=== PATIENT | female | born 1990 | race Caucasian/White ===

== ENCOUNTER 2020-02-13 10:25 | Emergency (ER) | payer SELFPAY ==
--- NOTE | 2020-02-13 11:03 | EDPHYS ---
Physician Documentation [facility] Name: Joyce Hopson Age: 29 yrs Sex: Female : 1990 Arrival Date: 02/13/2020 Time: 10:27 Bed 18 Private MD: ED Physician Shlomo Tapia HPI: 02/12 10:56 This 29 yrs old Female presents to ER via Ambulatory with complaints of [facility] Urinary Problem. 10:56 The patient presents with urinary symptoms. Onset: The symptoms/episode began/occurred jmm gradually, 2 day(s) ago. Modifying factors: The symptoms are alleviated by nothing, the symptoms are aggravated by nothing. Associated signs and symptoms: Pertinent positives: dysuria, urinary frequency, Pertinent negatives: fever, vaginal discharge, vomiting. This is a 29 year old female with no chronic medical conditions that presents to the ED with complaints of painful urination, increased frequency, blood in urine beginning this past Friday. Denies vomiting, fever.. Historical: - Allergies: 10:42 No Known Allergies; iw - Home Meds: 10:42 None [Active]; iw - PMHx: 10:42 None; iw - PSHx: 10:42 None; iw - Immunization history:: Adult Immunizations not up to date. - Social history:: Smoking status: Patient reports the use of cigarette tobacco products, smokes one pack cigarettes per day. ROS: 10:56 Constitutional: Negative for fever, chills, and weight loss, Cardiovascular: Negative jmm for chest pain, palpitations, and edema, Respiratory: Negative for shortness of breath, cough, wheezing, and pleuritic chest pain. 10:56 : Positive for urinary symptoms. 10:56 All other systems are negative. Exam: 10:56 Constitutional: This is a well developed, well nourished patient who is awake, alert, jmm and in no acute distress. Head/Face: atraumatic. Eyes: EOMI, no conjunctival erythema appreciated ENT: Moist Mucus Membranes Neck: Trachea midline, Supple Chest/axilla: Normal chest wall appearance and motion. Cardiovascular: Regular rate and rhythm. No edema appreciated Respiratory: Normal respirations, no respiratory distress appreciated Abdomen/GI: Non distended, soft 10:56 Skin: General appearance color normal MS/ Extremity: Moves all extremities, no obvious deformities appreciated, no edema noted to the lower extremities Neuro: Awake and alert, normal gait Psych: Behavior is normal, Mood is normal, Patient is cooperative and pleasant 10:56 Back: CVA tenderness, is absent. Vital Signs: 10:40 BP 125 / 87; Pulse 89; Resp 16; Temp 98.3; Pulse Ox 99% on R/A; Weight 63.5 kg; Height iw 5 ft. 10 in. (177.80 cm); Pain 8/10; 10:40 Body Mass Index 20.09 (63.50 kg, 177.80 cm) iw MDM: 10:50 Patient medically screened. [facility] 10:59 Data reviewed: vital signs, nurses notes. Counseling: I had a detailed discussion with [facility] the patient and/or guardian regarding: the historical points, exam findings, and any diagnostic results supporting the discharge/admit diagnosis, the need for outpatient follow up, to return to the emergency department if symptoms worsen or persist or if there are any questions or concerns that arise at home. ED course: Patient is alert and non toxic in appearance in the ED. Patient is advised to follow up with pcp for reevaluation. PE findings not consistent with pyelo. Patient is given strict return precautions. Patient understood and agrees with the plan of care. . 02/12 10:55 Order name: Urine Culture [facility] 02/12 11:16 Order name: Urine Dipstick--Ancillary (enter results) eb 02/12 10:55 Order name: Urine Test (obtain specimen); Complete Time: 11:[address] [facility] 02/12 11:16 Order name: Urine --Ancillary (enter results) Administered Medications: 11:21 Drug: Rocephin (cefTRIAXone) 1 grams Route: IM; Site: right gluteus; rb3 11:45 Follow up: Response: No adverse reaction rb3 11:21 Drug: [place] 5 mg-325 mg 1 tabs Route: PO; rb3 11:45 Follow up: Response: No adverse reaction rb3 Disposition: 12:27 Co-signature as Attending Physician, Shlomo Tapia MD. rn Disposition: 02/13/20 11:03 Discharged to Home. Impression: Urinary tract infection, site not specified. - Condition is Stable. - Discharge Instructions: Urinary Tract Infection, Adult. - Prescriptions for cefpodoxime 200 mg Oral Tablet - take 1 tablet by ORAL route every 12 hours with food; 20 tablet. Ultracet 37.5- 325 mg Oral Tablet - take 1 tablet by ORAL route every 6 hours - for up to 5 days; do not exceed 8 tablets per day.; 12 tablet. - Medication Reconciliation Form, Thank You Letter, Antibiotic Education, Prescription Opioid Use form. - Follow up: Private Physician; When: 2 - 3 days; Reason: Recheck today's complaints, Continuance of care, Re-evaluation by your physician. Signatures: Dispatcher [employer] EDVA Tyrell Davis PA PA jmm Williams, Irene, RN RN Shlomo Ramos MD MD rn Barber, Rebecca, RN RN rb3 Corrections: (The following items were deleted from the chart) 11:46 11:03 02/13/2020 11:03 Discharged to Home. Impression: Urinary tract infection, site rb3 not specified. Condition is Stable. Forms are Medication Reconciliation Form, Thank You Letter, Antibiotic Education, Prescription Opioid Use. Follow up: Private Physician; When: 2 - 3 days; Reason: Recheck today's complaints, Continuance of care, Re-evaluation by your physician. tiny
--- NOTE | 2020-02-13 11:03 | ER ---
Nurse's Notes [facility] Name: Joyce Hopson Age: 29 yrs Sex: Female : 1990 Arrival Date: 02/13/2020 Time: 10:27 Bed 18 Private MD: Diagnosis: Urinary tract infection, site not specified Presentation: 02/12 10:40 Chief complaint: Patient states: difficulty urinating since Friday, back pain, abd pain iw and blood in urine yesterday. Coronavirus screen: At this time, the client does not indicate any symptoms associated with coronavirus-19. Ebola Screen: Patient negative for fever greater than or equal to 101.5 degrees Fahrenheit, and additional compatible Ebola Virus Disease symptoms Patient denies exposure to infectious person. Patient denies travel to an Ebola-affected area in the 21 days before illness onset. No symptoms or risks identified at this time. Initial Sepsis Screen: Does the patient meet any 2 criteria? No. Patient's initial sepsis screen is negative. Does the patient have a suspected source of infection? No. Patient's initial sepsis screen is negative. Risk Assessment: Do you want to hurt yourself or someone else? Patient reports no desire to harm self or others. Onset of symptoms was February 11, 2020. 10:40 Method Of Arrival: Ambulatory iw 10:40 Acuity: ALDO 3 iw Historical: - Allergies: 10:42 No Known Allergies; iw - Home Meds: 10:42 None [Active]; iw - PMHx: 10:42 None; iw - PSHx: 10:42 None; iw - Immunization history:: Adult Immunizations not up to date. - Social history:: Smoking status: Patient reports the use of cigarette tobacco products, smokes one pack cigarettes per day. Screenin:40 Abuse screen: Denies threats or abuse. Nutritional screening: No deficits noted. rb3 Tuberculosis screening: No symptoms or risk factors identified. Fall Risk None identified. Assessment: 10:40 General: Appears in no apparent distress. comfortable, Behavior is calm, cooperative, rb3 Denies fever. Pain: Complains of pain in back and abdominal Pain currently is 6 out of 10 on a pain scale. Neuro: Level of Consciousness is awake, alert, obeys commands, Oriented to person, place, time, situation. Cardiovascular: Patient's skin is warm and dry. Respiratory: Airway is patent Respiratory effort is even, unlabored, Respiratory pattern is regular, symmetrical. GI: No signs and/or symptoms were reported involving the gastrointestinal system. : Reports blood in urine since yesterday. 11:24 Reassessment: Discharge pending due to shot time. rb3 Vital Signs: 10:40 BP 125 / 87; Pulse 89; Resp 16; Temp 98.3; Pulse Ox 99% on R/A; Weight 63.5 kg; Height iw 5 ft. 10 in. (177.80 cm); Pain 8/10; 10:40 Body Mass Index 20.09 (63.50 kg, 177.80 cm) iw ED Course: 10:27 Patient arrived in ED. as 10:31 Tyrell Davis PA is PHCP. [facility] 10:32 Shlomo Tapia MD is Attending Physician. jmm 10:40 Patient has correct armband on for positive identification. Bed in low position. Call rb3 light in reach. Side rails up X 1. Pulse ox on. NIBP on. 10:42 Triage completed. iw 10:42 Arm band placed on. iw 11:08 Nadia Higgins, RN is Primary Nurse. rb3 11:46 No provider procedures requiring assistance completed. Patient did not have IV access rb3 during this emergency room visit. Administered Medications: 11:21 Drug: Rocephin (cefTRIAXone) 1 grams Route: IM; Site: right gluteus; rb3 11:45 Follow up: Response: No adverse reaction rb3 11:21 Drug: [place] 5 mg-325 mg 1 tabs Route: PO; rb3 11:45 Follow up: Response: No adverse reaction rb3 Outcome: 11:03 Discharge ordered by . [facility] 11:46 Discharged to home ambulatory, with family. rb3 11:46 Condition: stable 11:46 Discharge instructions given to patient, Instructed on discharge instructions, follow up and referral plans. medication usage, Demonstrated understanding of instructions, follow-up care, medications, Prescriptions given X 2. 11:46 Patient left the ED. rb3 Addendum: 02/16/2020 12:43 Addendum: Culture Results: Positive urine culture. Bacteria is resistant to, has a a5 intermediate sensitivity, or is not tested against prescribed antibiotics. Report given to ALINA for further evaluation and then to solar sales representative for follow up with patient. Phone call Attempt #1 Spoke to patient and pt reports symptoms are improving and reports she is feeling better, pt reports she has not followed-up yet but she will. Signatures: Tyrell Davis PA PA jmm Martinez, Amelia as Williams, Irene RN RN iw Kirti Chery RN RN aa5 Nadia Higgins RN RN rb3 Corrections: (The following items were deleted from the chart) 02/12 10:43 10:40 Pulse 89bpm; Resp 16bpm; Pulse Ox 99% RA; Temp 98.3F; 63.5 kg; Height 5 ft. 10 iw in.; BMI: 20.0; Pain 8/10; iw
[2020-02-13] MEDS ORDERED: HYDROCODONE/APAP 5/325 MG TAB ONE (11:30)
[2020-02-13] MEDS ORDERED: CEFTRIAXONE 1000 MG/VIAL ONE (11:30)
[2020-02-13 12:23] LABS: Urine Blood 3+ (NEG); Urine Glucose NEGATIVE (NEG); Urine Protein 3+ (NEG); Urine Specific Gravity 1.025 (1.005-1.030)
[2020-02-13 13:26] VITALS: BP 125/87; TEMP 98.3; O2SAT 99
== END 2020-02-13 11:46 | disposition home or self-care (01) ==
LOC: ER 10:25
DX: N39.0 Urinary tract infection, site not specified (principal); F17.210 Nicotine dependence, cigarettes, uncomplicated
CPT/HCPCS: 81003; 81025; 87077; 87086; 87088; 87186; 96372; 99283

== ENCOUNTER 2020-07-19 08:31 | Emergency (ER) | payer SELFPAY ==
--- NOTE | 2020-07-19 09:54 | EDPHYS ---
Physician Documentation [facility] Name: Joyce Hopson Age: 30 yrs Sex: Female : 1990 Arrival Date: 07/19/2020 Time: 08:35 Bed 15 Private MD: EDITH Physician Gene Bhagat HPI: 07/19 09:47 This 30 yrs old Female presents to ER via Ambulatory with complaints of [facility] Urinary Problem. 09:47 The patient presents with urinary symptoms. Onset: The symptoms/episode began/occurred jmm 1 day(s) ago. Associated signs and symptoms: Pertinent positives: dysuria, hematuria, urinary frequency, Pertinent negatives: fever. Patient denies fever, vomiting, abdominal pain. 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 - Social history:: Smoking status: Patient reports the use of cigarette tobacco products, smokes one pack cigarettes per day. ROS: 09:47 Constitutional: Negative for fever, chills, and weight loss, Cardiovascular: Negative jmm for chest pain, palpitations, and edema, Respiratory: Negative for shortness of breath, cough, wheezing, and pleuritic chest pain. 09:47 : Positive for urinary symptoms. 09:47 All other systems are negative. Exam: 09:47 Constitutional: This is a well developed, well nourished patient who is awake, alert, jmm and in no acute distress. Head/Face: atraumatic. Eyes: EOMI, no conjunctival erythema appreciated ENT: Moist Mucus Membranes Neck: Trachea midline, Supple Chest/axilla: Normal chest wall appearance and motion. Cardiovascular: Regular rate and rhythm. No edema appreciated Respiratory: Normal respirations, no respiratory distress appreciated Abdomen/GI: Non distended, soft Back: Normal ROM Skin: General appearance color normal MS/ Extremity: Moves all extremities, no obvious deformities appreciated, no edema noted to the lower extremities Neuro: Awake and alert, normal gait Psych: Behavior is normal, Mood is normal, Patient is cooperative and pleasant Vital Signs: 09:05 BP 105 / 74; Pulse 83; Resp 16 S; Temp 98.1(O); Pulse Ox 100% on R/A; Weight 61.23 kg aa5 (R); Height 5 ft. 1 in. (154.94 cm) (R); Pain 7/10; 10:02 BP 122 / 84; Pulse 76; Resp 18; Temp 98.1(O); Pulse Ox 100% on R/A; Weight 61.23 kg; ld1 Height 5 ft. 1 in. (154.94 cm); Pain 7/10; 10:02 Body Mass Index 25.51 (61.23 kg, 154.94 cm) ld1 MDM: 09:46 Patient medically screened. [facility] 09:51 Data reviewed: vital signs, nurses notes. Counseling: I had a detailed discussion with tiny the patient and/or guardian regarding: the historical points, exam findings, and any diagnostic results supporting the discharge/admit diagnosis, the need for outpatient follow up, to return to the emergency department if symptoms worsen or persist or if there are any questions or concerns that arise at home. ED course: Patient is alert and non toxic in appearance in the ED. Patient was given strict return precautions. Patient understood and agrees with the plan of care. . 07/19 09:47 Order name: Urine Culture [facility] 07/19 09:47 Order name: Urine Culture [facility] 07/19 09:56 Order name: Urine Dipstick-Ancillary; Complete Time: 10:00 [facility] 07/19 09:59 Order name: Urine --Ancillary (enter results) bd Administered Medications: No medications were administered Disposition: 11:29 Co-signature as Attending Physician, Gene Bhagat MD I agree with the assessment and [facility] plan of care. Disposition: 07/19/20 09:54 Discharged to Home. Impression: Urinary tract infection, site not specified. - Condition is Stable. - Discharge Instructions: Urinary Tract Infection, Adult. - Prescriptions for Cephalexin 500 mg Oral Capsule - take 1 capsule by ORAL route 3 times per day for 7 days; 21 capsule. - Medication Reconciliation Form, Thank You Letter, Antibiotic Education, Prescription Opioid Use form. - Follow up: Private Physician; When: 2 - 3 days; Reason: Recheck today's complaints, Continuance of care, Re-evaluation by your physician. Signatures: Dispatcher [employer] EDMS OlayinkaGene MD MD cha Mickail, Joel, PA PA jmm Kirti Chery, RN RN aa5 Amisha Monet, RN RN ld1 Corrections: (The following items were deleted from the chart) 10:16 09:54 07/19/2020 09:54 Discharged to Home. Impression: Urinary tract infection, site ld1 not specified. Condition is Stable. Forms are Medication Reconciliation Form, Thank You Letter, Antibiotic Education, Prescription Opioid Use. Follow up: Private Physician; When: 2 - 3 days; Reason: Recheck today's complaints, Continuance of care, Re-evaluation by your physician. tiny
--- NOTE | 2020-07-19 09:54 | ER ---
Nurse's Notes [facility] Name: Joyce Hopson Age: 30 yrs Sex: Female : 1990 Arrival Date: 07/19/2020 Time: 08:35 Bed 15 Private MD: Diagnosis: Urinary tract infection, site not specified Presentation: 07/19 09:05 Chief complaint: Patient states: "I'm sure I have a UTI". Pt c/o burning with urination aa5 and blood in the urine. Pt also reports low back pain. 09:05 Coronavirus screen: At this time, the client does not indicate any symptoms associated aa5 with coronavirus-19. Ebola Screen: Patient negative for fever greater than or equal to 101.5 degrees Fahrenheit, and additional compatible Ebola Virus Disease symptoms. Initial Sepsis Screen: Does the patient meet any 2 criteria? No. Patient's initial sepsis screen is negative. Does the patient have a suspected source of infection? No. Patient's initial sepsis screen is negative. Risk Assessment: Do you want to hurt yourself or someone else? Patient reports no desire to harm self or others. Onset of symptoms was July 2020. 09:05 Acuity: ALDO 3 aa5 09:05 Method Of Arrival: Ambulatory aa5 HELIARC WELDER: 09:40 [facility] 07/03/2020 aa5 Historical: - Allergies: 09:40 No Known Allergies; aa5 - PMHx: 09:40 None; aa5 - PSHx: 09:40 back sx; hernia sx; aa5 - Immunization history:: Adult Immunizations unknown. - Social history:: Smoking status: Patient reports the use of cigarette tobacco products, smokes one pack cigarettes per day. Screenin:02 Abuse screen: Denies threats or abuse. Denies injuries from another. Nutritional ld1 screening: No deficits noted. Tuberculosis screening: No symptoms or risk factors identified. Fall Risk None identified. Assessment: 10:02 General: Appears in no apparent distress. comfortable, Behavior is calm, cooperative, ld1 appropriate for age. Pain: Complains of pain in left low back and right low back Pain currently is 7 out of 10 on a pain scale. Quality of pain is described as throbbing, Pain began 1 day ago. Is continuous. Neuro: Level of Consciousness is awake, alert, obeys commands, Oriented to person, place, time, situation, Appropriate for age. Cardiovascular: Capillary refill < 3 seconds Patient's skin is warm and dry. Respiratory: Airway is patent Respiratory effort is even, unlabored, Respiratory pattern is regular, symmetrical. GI: Abdomen is flat, non-distended. : Reports burning with urination, since Started one day ago, 07/18/2020. EENT: No signs and/or symptoms were reported regarding the EENT system. Derm: No signs and/or symptoms reported regarding the dermatologic system. Musculoskeletal: No signs and/or symptoms reported regarding the musculoskeletal system. Vital Signs: 09:05 BP 105 / 74; Pulse 83; Resp 16 S; Temp 98.1(O); Pulse Ox 100% on R/A; Weight 61.23 kg aa5 (R); Height 5 ft. 1 in. (154.94 cm) (R); Pain 7/10; 10:02 BP 122 / 84; Pulse 76; Resp 18; Temp 98.1(O); Pulse Ox 100% on R/A; Weight 61.23 kg; ld1 Height 5 ft. 1 in. (154.94 cm); Pain 7/10; 10:02 Body Mass Index 25.51 (61.23 kg, 154.94 cm) ld1 ED Course: 08:35 Patient arrived in ED. as 09:05 Patient's name was called from ER lobby. No response. aa5 09:39 Amisha Monet, JT is Primary Nurse. ld1 09:40 Triage completed. aa5 09:41 Tyrell Davis PA is PHCP. [facility] 09:41 Gene Bhagat MD is Attending Physician. [facility] 10:02 Patient has correct armband on for positive identification. Bed in low position. Call ld1 light in reach. Side rails up X 1. 10:02 No provider procedures requiring assistance completed. Patient did not have IV access ld1 during this emergency room visit. 10:05 Arm band placed on right wrist. ld1 10:05 Urine Culture Sent. ld1 Administered Medications: No medications were administered Outcome: 09:54 Discharge ordered by . tiny 10:02 Discharged to home ambulatory. ld1 10:02 Condition: stable 10:02 Discharge instructions given to patient, Instructed on discharge instructions, medication usage, Demonstrated understanding of instructions, follow-up care, medications. 10:16 Patient left the ED. ld1 Addendum: 07/23/2020 13:05 Addendum: Culture Results: Positive urine culture. Bacteria is resistant to, has s s intermediate sensitivity, or is not tested against prescribed antibiotics. Report given to ALINA for further evaluation and then to circle saw operator for follow up with patient. Phone call Attempt #1 Attempted to call patient. No answer. Left VM. Dharmesh Leija NP recommends to follow up with patient. If no improvement prescribe the following: Macrobid 100 mg PO BID for 10 days # 20 tablets. Signatures: Tyrell Davis PA PA jmm Martinez, Amelia as Calderon, Audri RN RN aa5 Tara Mcpherson RN RN ss Amisha Monet RN RN ld1 Corrections: (The following items were deleted from the chart) 07/19 09:50 09:48 General: Appears in no apparent distress. comfortable, Behavior is calm, ld1 cooperative, appropriate for age, ld1 09:50 09:48 Pain: ld1 ld1
[2020-07-19 09:56] LABS: Urine Blood 3+ (Negative); Urine Glucose Negative (Negative); Urine Protein 2+ (Negative); Urine pH 6.5 (5.0-7.0)
[2020-07-19 10:23] VITALS: TEMP 98.1; O2SAT 100
[2020-07-19 10:24] VITALS: BP 122/84
== END 2020-07-19 10:16 | disposition home or self-care (01) ==
LOC: ER 08:31
DX: N39.0 Urinary tract infection, site not specified (principal); F17.210 Nicotine dependence, cigarettes, uncomplicated
CPT/HCPCS: 81003; 81025; 87077; 87086; 87088; 87186; 99283